=== PATIENT | male | born 1985 | race Caucasian/White ===

== ENCOUNTER 2017-11-06 20:01 | Emergency (ER) | payer BC ==
[~2017-11-06] VITALS: Ht 167.6 cm; Wt 79.4 kg
[~2017-11-06 20:01] MED LIST: FAMO20TA5 PO; IBP600T1 PO; IBP800T PO; MUPIROCIN; SCR1T PO
--- OUTSIDE RECORDS SUMMARY | 2017-11-06 20:08 | XMS REPORT | Continuity of Care Document ---
Author Author [facility] Organization [facility] Address Unknown Phone Unavailable Allergies Active Description Code Type Severity Reaction Onset Reported/Identified Relationship to Patient Clinical Status Yes Penicillins [id number] Drug Allergy Unknown N/A 10/29/2007 Medications There is no data. Problems Date Dx Coded Attending Type Code Diagnosis Diagnosed By 12/24/2009 Ot 782.1 12/04/2012 JESSICA LOPEZ, IRASEMA T Ot 943.11 12/04/2012 JESSICA LOPEZ, IRASEMA T Ot 944.17 12/04/2012 JESSICA LOPEZ, IRASEMA T Ot 944.22 12/04/2012 JESSICA LOPEZ, IRASEMA T Ot 944.25 12/04/2012 JESSICA LOPEZ, IRASEMA T Ot 948.00 12/04/2012 JESSICA LOPEZ, IRASEMA T Ot E000.8 12/04/2012 JESSICA LOPEZ, IRASEMA T Ot E849.0 12/04/2012 JESSICA LOPEZ, IRASEMA T Ot E894 10/26/2014 MAG HOLT DO Ot 787.01 10/26/2014 MAG HOLT DO Ot 789.06 Procedures There is no data. Results There is no data. Encounters ACCT No. Visit Date/Time Discharge Status Pt. Type Provider Facility Loc./Unit Complaint [id number] 10/26/2014 01:27:00 10/26/2014 04:13:00 DIS Emergency MAG HOLT DO [facility] ER [id number] 12/04/2012 19:12:00 12/04/2012 19:40:00 DIS Emergency IRASEMA LOPEZ MD [facility] ER [id number] 12/24/2009 14:17:00 Document Registration [email or web address] 10/26/2014 02:14:15 ACT Document Registration
[2017-11-06] MEDS ORDERED: RX-CLINDAMYCIN 150 MG (CLEOCIN) CAP PPK#4 PO STA (20:35)
[2017-11-06] MEDS ORDERED: TETANUS,DIPTH,PERTUSS P/F (BOOSTRIX) 0.5 ML VIAL IM STA (20:35)
[2017-11-06] MEDS ORDERED: TETANUS,DIPTH,PERTUSS P/F (BOOSTRIX) 0.5 ML VIAL IM ONE (20:43)
--- NOTE | 2017-11-06 20:43 | ED General ---
General Chief Complaint: Bite-Animal/Human/Insect Stated Complaint: DOG BITE ON R HAND Nursing Triage Note: pt's dogs were fighting when pt tried to break them up and was bit by his great pyrenese on the right hand. pt states he has had dog since april and has not had him to the vet. dog's shot status is unknown. Nursing Sepsis Screen: No Definite Risk Source of Information: Patient, Family (mother) Exam Limitations: No Limitations History of Present Illness Date Seen by Provider: November 06, 2017 Time Seen by Provider: 20:20 Initial Comments 32-year-old male patient presents to the emergency department with complaints of a dog bite to the right hand. Patient reports he has had the dog since April, but does not think the dog is up-to-date on rabies vaccinations. Was trying to break up a fight between 2 of his dogs. Location Injury Occurred: home Timing/Duration: 1/2 Hour Allergies and Home Medications Allergies Coded Allergies: Penicillins (Verified Allergy, Unknown, 10/29/07) Home Medications Ciprofloxacin HCl 500 Mg Tablet, 500 MG PO BID Prescribed by: CHERI CEE on 11/06/172043 Clindamycin HCl 300 Mg Capsule, 300 MG PO Q6H Prescribed by: CHERI CEE on 11/06/172043 Famotidine 20 Mg Tablet, 1 EACH PO BID Prescribed by: MAG HOLT on 10/26/14353 Sucralfate 1 Gm/10 Ml Susp, 2 TSP PO ACHS Prescribed by: MAG HOLT on 10/26/14353 Patient Home Medication List Home Medication List Reviewed: Yes Review of Systems Constitutional: no symptoms reported Musculoskeletal: No joint pain, No joint swelling Skin: see HPI Psychiatric/Neurological: Denies Numbness, Denies Paresthesia, Denies Tingling , Denies Weakness All Other Systems Reviewed Negative Unless Noted: Yes (Negative excepted noted.) Past Vveptsz-Oirdiz-Zzzkxx Hx Patient Social History Alcohol Use: Denies Use Recreational Drug Use: No 2nd Hand Smoke Exposure: No Recent Foreign Travel: No Contact w/Someone Who Travel: No Recent Infectious Disease Expo: No Recent Hopitalizations: Yes (6 YRS AGO-ROLLED 3 NINO) Immunizations Up To Date Tetanus Booster (TDap): Unknown Seasonal Allergies Seasonal Allergies: No Past Medical History Surgeries: Yes (TONSILLECTOMY-15 YRS. AGO) Tonsillectomy Respiratory: No Cardiac: No Neurological: No Reproductive Disorders: No Sexually Transmitted Disease: No HIV/AIDS: No Gastrointestinal: No Musculoskeletal: No Endocrine: No Cancer: No Psychosocial: No Integumentary: No Blood Disorders: No Adverse Reaction/Blood Tranf: No Family Medical History Reviewed Nursing Family Hx No Pertinent Family Hx Physical Exam Vital Signs Vital Signs - First Documented 11/06/17 20:10 Temp 99.7 Pulse 78 Resp 14 B/P (MAP) 138/95 (109) O2 Delivery Room Air Capillary Refill : Less Than 3 Seconds General Appearance: No Apparent Distress, WD/WN Cardiovascular: Normal Peripheral Pulses Extremity: Normal Capillary Refill, Normal Range of Motion, Other (a 1 cm laceration noted to the right posterior hand between the fourth and fifth metacarpals and a 0.5 cm superficial laceration to the right anterior hand overlying the fifth metacarpal. Soft tissue tenderness without evidence of bleeding, drainage, swelling, or deformity.) Neurologic/Psychiatric: Alert, Oriented x3, No Motor/Sensory Deficits, Normal Mood/Affect Skin: Normal Color, Warm/Dry, Other (a 1 cm laceration noted to the right posterior hand between the fourth and fifth metacarpals and a 0.5 cm superficial laceration to the right anterior hand overlying the fifth metacarpal. Soft tissue tenderness without evidence of bleeding, drainage, swelling, or deformity.) Progress/Results/Core Measures Suspected Sepsis Recent Fever Within 48 Hours: No Infection Criteria Present: None New/Unexplained Altered Menta: No Sepsis Screen: No Definite Risk SIRS Temperature:99.7 Pulse: 78 Respiratory Rate: 14 Blood Pressure 138 /95 Mean: 109 Results/Orders My Orders Orders - CHERI CEE Pertuss(Acell),Tet Adult (Boostrix (11/06/17 20:35) Rx-Clindamycin Capsule (Rx-Cleocin Capsu (11/06/17 20:35) Levofloxacin Tablet (Levaquin Tablet) (11/06/17 20:45) Vital Signs/I&O 11/06/17 20:10 Temp 99.7 Pulse 78 Resp 14 B/P (MAP) 138/95 (109) O2 Delivery Room Air Capillary Refill : Less Than 3 Seconds Blood Pressure Mean: 109 Departure Communication (Admissions) wounds scrubbed with chlorhexidine and sterile saline. Posterior wound loosely reapproximated with Mastisol and Steri-Strips. Wounds covered with gauze and an Dandy wrap. Impression Primary Impression: Dog bite Qualified Codes: W54.0XXA - Bitten by dog, initial encounter Disposition: 01 HOME, SELF-CARE Condition: Improved Departure-Patient Inst. Decision time for Depature: 20:42 Referrals: MIAH LEE MD (PCP/Family) Primary Care Physician Patient Instructions: Animal Bites (DC), Rabies (DC) Add. Discharge Instructions: All discharge instructions reviewed with patient and/or family. Voiced understanding. Medications as instructed. Tylenol Extra Strength over-the- counter as directed for pain. Ibuprofen 800 mg by mouth every 8 hours as needed for pain. Elevate the right hand on pillows. Ice pack for 20 minute intervals as needed. Tomorrow morning you may remove the bandage, shower with antibacterial soap. Pat dry and cover with a bandage. Observe the dog for 10- 14 days for rabies symptoms. Follow-up with your primary care provider for recheck if needed. Return to the emergency department for worsened symptoms or any other concerns. Scripts Ciprofloxacin HCl (Ciprofloxacin HCl) 500 Mg Tablet 500 MG PO BID, #14 TAB 0 Refills Prov: CHERI CEE 11/06/17 Clindamycin HCl (Clindamycin HCl) 300 Mg Capsule 300 MG PO Q6H, #28 CAP 0 Refills Prov: CHERI CEE 11/06/17 Images Extremities-Upper 1 - Laceration 1 - Laceration CHERI CEE November 06, 2017 20:43
[2017-11-06] MEDS ORDERED: CLIN300C11 PO (20:44)
[2017-11-06] MEDS ORDERED: RX-CLINDAMYCIN 150 MG (CLEOCIN) CAP PPK#4 PO ONE (20:44)
[2017-11-06] MEDS ORDERED: CIPR500T4 PO (20:44)
[2017-11-06] MEDS ORDERED: LEVOFLOXACIN 500 MG TAB (LEVAQUIN) PO ONE (20:45)
[2017-11-06] MEDS ORDERED: LEVOFLOXACIN 500 MG TAB (LEVAQUIN) ONE (20:45)
[2017-11-06 21:05] VITALS: BP 136/92
== END 2017-11-06 21:05 | disposition home or self-care (01) ==
LOC: EDUNIT# 20:01 → ER 20:03
DX: S61.451A Open bite of right hand, initial encounter (principal); Z90.89 Acquired absence of other organs; Z23 Encounter for immunization; Z88.0 Allergy status to penicillin; W54.0XXA Bitten by dog, initial encounter
CPT/HCPCS: 12041; 90471; 90715